=== PATIENT | female | born 1965 | race Caucasian/White ===

== ENCOUNTER 2019-12-10 01:11 | Emergency (ER) | payer OTHER ==
[~2019-12-10] VITALS: Ht 172.7 cm; Wt 110.2 kg
[2019-12-10] MEDS ORDERED: PYRIDIUM DS200 MG PO (02:28)
[2019-12-10] MEDS ORDERED: KEFLEX500 MG PO (02:28)
== END 2019-12-10 02:33 | disposition home or self-care (01) ==
LOC: ER 01:11
DX: N39.0 Urinary tract infection, site not specified (principal)